=== PATIENT | male | born 1990 | race African-American/Black ===

== ENCOUNTER 2018-04-10 04:09 | Emergency (ER) | payer MEDICAID ==
[~2018-04-10] VITALS: Ht 185.4 cm; Wt 81.6 kg
[~2018-04-10 04:09] MED LIST: AZITHROMYCIN250 MG ORAL; BACITRACIN1 APPLIC TOPIC; IBUPROFEN600 MG ORAL; NKM; TRAMADOL HCL50 MG ORAL; VALIUM5 MG ORAL
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
[2018-04-10 04:44] VITALS: BP 153/105
--- NOTE | 2018-04-10 05:02 | Emergency Room Report ---
History of Present Illness General Chief Complaint: Upper Extremity Injury Source: Patient Present Illness HPI Patient presents week after an injury to his right ring finger. He was wrestling with a friend of his. He is unable to straighten it out. The finger feels cold. There's no significant pain at the moment. No medications have been taken. No numbness. No hand or wrist tenderness. Patient is right handed and works in retail. No fevers, rashes. Allergies: Coded Allergies: No Known Allergies (Unverified , 07/04/13) Patient History Past Medical History: see triage record Social History Narrative retail Reviewed Nursing Documentation: PMH: Agreed; PSxH: Agreed Nursing Documentation-PMH Past Medical History: No History, Except For Hx Asthma: Yes Review of Systems Constitutional: Reports: see HPI Musculoskeletal: Reports: see HPI Skin: Reports: see HPI Neurological: Reports: see HPI Hematologic/Lymphatic: Denies: easy bleeding Physical Exam Vital Signs Date Time Temp Pulse Resp B/P (MAP) Pulse Ox O2 Delivery O2 Flow Rate FiO2 04/10/18 04:32 97.9 83 18 153/105 100 Room Air Sp02 EP Interpretation: reviewed, normal General Appearance: well appearing, no apparent distress, GCS 15 Head: normocephalic, atraumatic Eyes: bilateral eye normal inspection, bilateral eye PERRL ENT: hearing grossly normal, normal voice Neck: full range of motion, supple Respiratory: no respiratory distress, speaking full sentences Cardiovascular #1: regular rate, rhythm Cardiovascular #2: 2+ radial (R) - Capillary refill normal ring finger Gastrointestinal: normal inspection Musculoskeletal: other - Extensor tendon fact distal interphalangeal joint right ring finger. Otherwise range of motion is normal tendons are intact. No deformity Neurologic: alert, oriented x3, motor strength/tone normal, sensory intact Psychiatric: mood/affect normal Skin: no rash Medical Decision Making Diagnostic Impression: Primary Impression: Mallet finger Qualified Codes: M20.011 - Mallet finger of right finger(s) ER Course Patient presents with right ring finger injury. Bites physical appearance and how this happened this is a mallet finger we need to exclude a possible fracture. X-rays are indicated and also ibuprofen. The patient will need to be splinted. X-ray without fracture. There is some foreign material distally across the possible external to the joint. Splint applied by tech. Position is good. Neurovascular is normal. Discussed expected course of this injury. Also need for follow-up Patient stable for outpatient observation and treatment. Other X-Ray Diagnostic Results Other X-Ray Diagnostic Results : X-Ray ordered: hand # of Views/Limited Vs Complete: 3 View Indication: Pain Interpretation: no dislocation, no soft tissue swelling, no fractures Impression: Other Electronically Signed by: Electronically signed by Dale Giordano MD Last Vital Signs Date Time Temp Pulse Resp B/P (MAP) Pulse Ox O2 Delivery O2 Flow Rate FiO2 04/10/18 05:50 97.9 81 18 149/98 100 Room Air Status: improved Disposition: HOME, SELF-CARE Condition: Improved Scripts Ibuprofen* (MOTRIN*) 600 Mg Tablet 600 MG ORAL Q6H PRN for For Pain, #20 TAB Prov: Dale Giordano MD 04/10/18 Dale Giordano MD Apr 10, 2018 05:02
[2018-04-10] MEDS ORDERED: IBUPROFEN600 MG ORAL (05:34)
[2018-04-10 05:50] VITALS: BP 149/98
--- NOTE | 2018-04-10 05:56 | NUR ---
ED Nurse Note: ED Nurse Note: PT is medically cleared per ERMD order. pt is stable for transfer. pt status condition and vital signs are reported to ERMD prior to DC. pt vital signs are stable. pt is alert and oriented times 4. pt left with all belongings, including DC ntoes and prescriptions. pt was able to teach back and understands DC notes and prescription. pt is instructed to follow up with primary MD as soon as possible, pt is instructed to return to ER if any variance in condition. ID band removed. pt is able to ambulate. pt is alert and oriented times 4. pt is stable for DC as per ERMD orders.
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
== END 2018-04-10 05:50 | disposition home or self-care (01) ==
LOC: EMR 05:07
DX: M20.011 Mallet finger of right finger(s) (principal); J45.909 Unspecified asthma, uncomplicated
CPT/HCPCS: 29130; 99283

== ENCOUNTER 2018-07-01 22:03 | Emergency (ER) | payer MEDICAID ==
[~2018-07-01] VITALS: Ht 188 cm; Wt 86.2 kg
[2018-07-01 22:47] VITALS: BP 144/96
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
[2018-07-01] MEDS ORDERED: Lidocaine 1% 10mg/ml/EPI 0.01mg/ml 20ml INJ ONE ×2 (22:59→23:00)
[2018-07-01] MEDS ORDERED: BACITRACIN ZIN1 EACH TOPIC (23:40)
[2018-07-01] MEDS ORDERED: IBUPROFEN600 MG ORAL (23:40)
[2018-07-02] MEDS ORDERED: NORCO 5-325 TA1 EACH ORAL (00:19)
--- NOTE | 2018-07-02 00:36 | NUR ---
ED Nurse Note: pt cleared to be d/c per ERMD, pt discharge and aftercare instruction provided w/ prescription, pt education done via discussion and handout, pt advised to follow up or return to ed if sx worsen or new sx develop, pt verbalized understanding and agrees with plan, vss, ambulatory w/steady gait, left w/ all belongings. stitches done by ERMD intact, copy of CT provided per ERMD.
[2018-07-02 00:43] VITALS: BP 138/76
--- NOTE | 2018-07-02 00:44 | NUR ---
ED Nurse Note: pt states he has to leave to go see his brother, states he will come back tomorrow for CD copy of CT result
--- NOTE | 2018-07-02 09:43 | Diagnostic Imaging Report ---
Indication: Pain status post injury Technique: CT maxillofacial was performed utilizing automated exposure control without intravenous contrast material. Axial and coronal images were generated. CT dose: Total DLP 696.93 mGycm; CTDI vol 28.19 mGy Comparison: None Findings: There is an acute, mildly displaced fracture of the left mandibular ramus extending to the left mandibular neck. Additionally there is a subtle nondisplaced fracture involving the anterior aspect of the right mandibular body. There is soft tissue swelling with some subcutaneous gas underlying the right chin consistent with given history of laceration. No retained radiopaque foreign body is identified. Nasal bones and bony orbits are intact. There is no infiltration of the conal fat bilaterally. Globes are symmetric. Mastoid air cells are clear. There is mild mucosal thickening noted in the paranasal sinuses. Imaged intracranial compartment is unremarkable. IMPRESSION: * Acute, mildly displaced fracture involving the left mandibular ramus extending into the left mandibular neck. * Subtle acute nondisplaced fracture involving the anterior aspect of the right mandibular body. * Soft tissues swelling involving the right chin with areas of subcutaneous gas consistent with given history of laceration. No radiopaque foreign body. * Mild paranasal sinus disease. Salient findings corresponds with the statrad preliminary report. The CT scanner at [facility] is accredited by the [employer] [place] [employer] and the scans are performed using protocols designed to limit radiation exposure to as low as reasonably achievable to attain images of sufficient resolution adequate for diagnostic evaluation.
== END 2018-07-02 00:43 | disposition home or self-care (01) ==
LOC: EMR 23:00
DX: S01.81XA Laceration without foreign body of other part of head, initial encounter (principal); S02.642A Fracture of ramus of left mandible, initial encounter for closed fracture; S02.601A Fracture of unspecified part of body of right mandible, initial encounter for closed fracture; J32.9 Chronic sinusitis, unspecified; Y04.2XXA Assault by strike against or bumped into by another person, initial encounter
CPT/HCPCS: 12011; 70486; 99284; Z7502

== ENCOUNTER 2018-07-10 08:54 | Emergency (ER) | payer MEDICAID ==
[~2018-07-10] VITALS: Ht 185.4 cm; Wt 78.9 kg
[~2018-07-10 08:54] MED LIST changes: +BACITRACIN ZIN1 EACH TOPIC; +NORCO 5-325 TA1 EACH ORAL
[2018-07-10 09:02] VITALS: BP 151/84
--- NOTE | 2018-07-10 09:31 | Emergency Room Report ---
History of Present Illness General Chief Complaint: Wound Recheck/Suture Removal Source: Patient Present Illness HPI 27-year-old male presents for suture removals, 9 days after having 5 sutures placed. He denies fevers, pain, bleeding, redness. Allergies: Coded Allergies: No Known Allergies (Unverified , 07/04/13) Patient History Reviewed Nursing Documentation: PMH: Agreed; PSxH: Agreed Nursing Documentation-PMH Past Medical History: No History, Except For Hx Asthma: Yes Review of Systems Constitutional: Denies: fever Eye: Denies: acuity changes Skin: Reports: no symptoms Hematologic/Lymphatic: Reports: no symptoms Allergic: Reports: no symptoms Physical Exam Vital Signs Date Time Temp Pulse Resp B/P (MAP) Pulse Ox O2 Delivery O2 Flow Rate FiO2 07/10/18 08:55 97.9 80 16 151/84 99 Room Air General Appearance: well appearing, no apparent distress Head: normocephalic, atraumatic ENT: hearing grossly normal, normal voice Neck: full range of motion, supple Respiratory: no respiratory distress, speaking full sentences Musculoskeletal: no calf tenderness Neurologic: alert, normal gait Psychiatric: mood/affect normal Skin: no rash, wd healing/no infection noted - 5 sutures overlying chin wound, nobreakdown, wound well-healed Medical Decision Making Diagnostic Impression: Primary Impression: Encounter for dressing change or suture removal ER Course Wound well-healed, sutures removed, and patient discharged Last Vital Signs Date Time Temp Pulse Resp B/P (MAP) Pulse Ox O2 Delivery O2 Flow Rate FiO2 07/10/18 09:02 97.9 79 16 151/84 99 Room Air Disposition: HOME, SELF-CARE Condition: Stable ERMELINDA CERVANTES M.D Jul 10, 2018 09:31
[2018-07-10 09:38] VITALS: BP 155/63
== END 2018-07-10 09:40 | disposition home or self-care (01) ==
LOC: EMR 09:30
DX: Z48.02 Encounter for removal of sutures (principal); J45.909 Unspecified asthma, uncomplicated
CPT/HCPCS: 99281

== ENCOUNTER 2018-10-02 15:31 | Emergency (ER) | payer MEDICAID ==
[~2018-10-02] VITALS: Ht 185.4 cm; Wt 83.9 kg
--- NOTE | 2018-10-02 16:00 | NUR ---
ED Nurse Note: PT walked in to ED due to pain on right knee. per pt, helped his friend on back yard and gave out knee. no fall. ambulatory with steady gait but still painful. AAO x4. respirations even and non-labored noted. will wait for the further order.
--- NOTE | 2018-10-02 16:40 | Diagnostic Imaging Report ---
Indication: Pain Knee pain/trauma 3 views of the right knee were obtained. Findings: No acute fracture, malalignment, or joint effusion are identified. There is anterior soft tissue swelling in the prepatellar region. Impression: No fracture. Prepatellar soft tissue swelling
[2018-10-02] MEDS ORDERED: NAPROXEN500 M2 ORAL (16:53)
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
[2018-10-02 16:58] VITALS: BP 133/78
--- NOTE | 2018-10-02 17:00 | NUR ---
ER DISCHARGE NOTE: Patient is cleared to be discharged per ERMD, pt is aox4, on room air, with stable vital signs. pt was given dc and prescription instructions, pt was able to verbalize understanding, pt id band removed without complications. pt is able to ambulate with steady gait. pt took all belongings.
== END 2018-10-02 17:02 | disposition home or self-care (01) ==
LOC: EMR 16:05
DX: S86.911A Strain of unspecified muscle(s) and tendon(s) at lower leg level, right leg, initial encounter (principal); X50.0XXA Overexertion from strenuous movement or load, initial encounter; Y92.9 Unspecified place or not applicable; J45.909 Unspecified asthma, uncomplicated
CPT/HCPCS: 99283

== ENCOUNTER 2020-02-25 08:40 | Emergency (ER) | payer MEDICAID ==
[~2020-02-25] VITALS: Ht 185.4 cm; Wt 88.5 kg
[~2020-02-25 08:40] MED LIST changes: +NAPROXEN500 M2 ORAL
[2020-02-25 09:00] VITALS: BP 147/97
[2020-02-25] MEDS ORDERED: HYDROcodone/Acetamin 5/325 tab ORAL ONE (09:00)
[2020-02-25] MEDS ORDERED: PENICILLIN V P500 MG PO (09:01)
[2020-02-25] MEDS ORDERED: NORCO 5-325 TA1 EAC1 ORAL (09:01)
[2020-02-25 09:19] VITALS: BP 143/94
--- NOTE | 2020-02-25 14:36 | Emergency Room Report ---
History of Present Illness General Chief Complaint: Pain Source: Patient Present Illness HPI 29-year-old male with history of dental caries here with dental pain. Patient says that he has a cavity of his left lower first molar. Has not been able to schedule a dentist appointment yet. He has chronic pain in that tooth but says it acutely worse over the past 24 hours. No facial pain or facial swelling. No headache or vision changes. Allergies: Coded Allergies: No Known Allergies (Unverified , 07/04/13) COVID-19 Screening Contact w/high risk pt: No Experienced COVID-19 symptoms?: No COVID-19 Testing performed DIRECTOR OF RESIDENTIAL SERVICES: Yes COVID-19 Screening: Negative COVID-19 COVID-19 Testing Source: 10/2019 Nursing Documentation-[facility] Past Medical History: No History, Except For Hx Asthma: Yes Review of Systems All Other Systems: negative except mentioned in HPI Physical Exam Vital Signs Date Time Temp Pulse Resp B/P (MAP) Pulse Ox O2 Delivery O2 Flow Rate FiO2 02/25/20 08:44 98.2 70 18 151/100 (117) 97 Room Air Sp02 EP Interpretation: reviewed, normal General Appearance: no apparent distress, alert, non-toxic Head: normocephalic, atraumatic Eyes: bilateral eye normal inspection, bilateral eye PERRL ENT: hearing grossly normal, normal pharynx, no angioedema, normal voice, other - Notable dental caries of the left lower first molar. No abscess Neck: full range of motion, supple/symm/no masses Respiratory: chest non-tender, lungs clear, normal breath sounds, speaking full sentences Cardiovascular #1: regular rate, rhythm, no edema Cardiovascular #2: 2+ carotid (R), 2+ carotid (L), 2+ radial (R), 2+ radial (L), 2+ dorsalis pedis (R), 2+ dorsalis pedis (L) Gastrointestinal: normal bowel sounds, non tender, soft, non-distended, no guarding, no rebound Rectal: deferred Genitourinary: normal inspection, no CVA tenderness Musculoskeletal: back normal, normal range of motion, gait/station normal, non- tender Neurologic: alert, motor strength/tone normal, oriented x3, sensory intact, responsive, speech normal Psychiatric: judgement/insight normal, memory normal, mood/affect normal, no suicidal/homicidal ideation Lymphatic: no adenopathy Medical Decision Making Diagnostic Impression: Primary Impression: Dental caries ER Course 29-year-old otherwise healthy male here with dental pain. Patient did have evidence of dental caries of the left lower first molar. He was given a pre scription for Pen-Vee K as well as [place]. He was given a dose of [place] in the emergency department. He was given information to follow-up with a dentist. Told to come back to emergency department worsening symptoms. Discharged in stable condition. Last Vital Signs Date Time Temp Pulse Resp B/P (MAP) Pulse Ox O2 Delivery O2 Flow Rate FiO2 02/25/20 09:19 98.3 81 16 143/94 98 Room Air Disposition: HOME, SELF-CARE Condition: Stable Scripts Hydrocodone Bit/Acetaminophen 5-325* (NORCO 5-325 TABLET*) 1 Each Tablet 1 TAB ORAL Q4H PRN for For Pain, #10 TAB Prov: Mikey Ledbetter M.D. 02/25/20 Penicillin V Potassium* (PENVK*) 500 Mg Tablet 500 MG PO Q6H, #28 TAB 0 Refills Prov: Mikey Ledbetter M.D. 02/25/20 Referrals: NOT CHOSEN IPA/,REFERRING (PCP) [facility] INFO: New Patient Screening: Sat- 8am-1pm Sat- 9am -5pm and Sat 2pm-5pm [facility] - [facility] Location: 2nd Floor Room [address] [place] [address] INFO: Sat & Sat-8:30am-4:30pm, - 8:30am - 7pm, - Emergency only, Sat- 8:30am-11:30am and afternoon emergency only [facility] Pediatrics(age 2-12) - Orthodontic Clinic - Hours: Sat,Sat,, 8:15am and 1pm (new patient screening), . 1pm. Emergency clinic Saturday - Saturday 8:30am and 1pm, Tues. 1pm. *Call to check if clinic is open; No appointment necessary for the first visit (new patient screening), Arrive 15-30 minutes early as it is first come, first serve. Mikey Ledbetter M.D. 10, 2020 14:36
== END 2020-02-25 09:20 | disposition home or self-care (01) ==
LOC: EMR 09:13
DX: K02.9 Dental caries, unspecified (principal); J45.909 Unspecified asthma, uncomplicated; Z79.899 Other long term (current) drug therapy
CPT/HCPCS: 99282

== ENCOUNTER 2020-03-21 13:47 | Emergency (ER) | payer MEDICAID ==
[~2020-03-21] VITALS: Ht 185.4 cm; Wt 88.5 kg
[~2020-03-21 13:47] MED LIST changes: +NORCO 5-325 TA1 EAC1 ORAL; +PENICILLIN V P500 MG PO
[2020-03-21 13:51] VITALS: BP 129/86
[2020-03-21 13:56] VITALS: BP 129/86
--- NOTE | 2020-03-21 13:56 | NUR ---
ED Nurse Note: Pt walked in to ED c/o toothache, lower left. Pt is requesting for a refill of pain meds. Pt was seen here couple of weeks and was dc with atb. AAOx4, no SOB. No fever.
--- NOTE | 2020-03-21 13:57 | NUR ---
ED Nurse Note: Pt. aao x4. ambulatory. Pt walked in to ED c/o toothache, lower left. Pt is requesting for a refill of pain meds.
[2020-03-21] MEDS ORDERED: Ketorolac 30mg Inj IM ONE (14:15)
--- NOTE | 2020-03-21 14:18 | Emergency Room Report ---
History of Present Illness General Chief Complaint: Toothache Source: Patient Present Illness HPI 29-year-old male with no known significant past history here requesting a refill of Fru[place]urst due to toothache. Patient was seen at [facility] February 24 for tooth infection, has not yet followed up with dentist and is requesting a list of dental offices that he can follow-up with. Still taking antibiotics. Denies fever and chills, facial swelling. Has not taken any medication for symptom relief. 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 COVID-19 Screening: Negative COVID-19 COVID-19 Testing Source: clinic Patient History Past Medical History: see triage record Past Surgical History: none Pertinent Family History: none Immunizations: UTD Reviewed Nursing Documentation: PMH: Agreed; PSxH: Agreed Nursing Documentation-PMH Hx Asthma: Yes Review of Systems All Other Systems: negative except mentioned in HPI Physical Exam Vital Signs Date Time Temp Pulse Resp B/P (MAP) Pulse Ox O2 Delivery O2 Flow Rate FiO2 03/21/20 13:51 98.2 98 19 129/86 98 Room Air Sp02 EP Interpretation: reviewed, normal General Appearance: no apparent distress, alert, GCS 15, non-toxic Head: normocephalic, atraumatic Eyes: bilateral eye normal inspection, bilateral eye PERRL ENT: hearing grossly normal, normal pharynx, no angioedema, normal voice Neck: full range of motion, supple/symm/no masses Respiratory: chest non-tender, lungs clear, normal breath sounds, speaking full sentences Cardiovascular #1: regular rate, rhythm, no edema Gastrointestinal: normal bowel sounds, non tender, soft, non-distended, no gua rding, no rebound Rectal: deferred Musculoskeletal: back normal Neurologic: alert, motor strength/tone normal, oriented x3, sensory intact, responsive, speech normal Psychiatric: judgement/insight normal, memory normal, mood/affect normal, no suicidal/homicidal ideation Skin: no rash Lymphatic: no adenopathy Medical Decision Making PA Attestation All my diagnosis and treatment plans were reviewed ad discussed with my supervising physician Dr. Heredia Diagnostic Impression: Primary Impression: Toothache ER Course 29-year-old male with no known significant past history here requesting a refill of Fru[place]st due to toothache. Patient was seen at [facility] February 24 for tooth infection, has not yet followed up with dentist and is requesting a list of dental offices that he can follow-up with. Still taking antibiotics. Denies fever and chills, facial swelling. Has not taken any medication for symptom relief. Ddx considered but are not limited to : Dental infection, toothache, facial cellulitis,superficial infection, abscess Vital signs: are WNL, pt. is afebrile H&PE are most consistent with: toothache ORDERS: Ibuprofen 800 ED INTERVENTIONS: None required at this time. DISCHARGE: At this time pt. is stable for d/c to home. Will provide printed patient care instructions, and any necessary prescriptions. Care plan and follow up instructions have been discussed with the patient prior to discharge. Contin ue taking medication as directed, finish antibiotics, I also provided patient with a list of dental offices to follow-up with, if worsening symptoms return to the emergency room. Condition at this time as patient was given a prescription for Fruithurst to undergo ED cannot refill that medication patient needs to follow primary care provider and dental offices. Patient agrees with this assessment. Last Vital Signs Date Time Temp Pulse Resp B/P (MAP) Pulse Ox O2 Delivery O2 Flow Rate FiO2 03/21/20 13:56 98.2 98 19 129/86 98 Room Air Disposition: HOME, SELF-CARE Condition: Stable Scripts Ibuprofen (Ibu) 800 Mg Tablet 800 MG PO TID, #30 TAB Prov: Matthew Timmons 03/21/20 Patient Instructions: Dental Pain Additional Instructions: Take medication as directed, follow primary care provider, if worsening symptoms return to the emergency room Matthew Timmons Mar 21, 2020 14:18
[2020-03-21] MEDS ORDERED: IBU800 MG PO (14:19)
[2020-03-21 14:30] VITALS: BP 129/86
--- NOTE | 2020-03-21 14:30 | NUR ---
ED Nurse Note: Pt cleared by ERPA for discharge. DC instructions/prescription was given and explained to pt and verbalized understanding of teachings. All medical deviecs such as ID band removed. Pt is AAO x4, ambulatory and left with all personal belongings.
== END 2020-03-21 14:30 | disposition home or self-care (01) ==
LOC: EMR 14:17
DX: K08.89 Other specified disorders of teeth and supporting structures (principal); J45.909 Unspecified asthma, uncomplicated
CPT/HCPCS: 96372; J1885; Z7502; 99283